=== PATIENT | male | born 1990 | race African-American/Black ===

== ENCOUNTER 2018-07-21 14:04 | Emergency (ER) | payer MEDICAID, SELFPAY ==
[2018-07-21] VITALS (23 sets, daily range): BP systolic 91–119; BP diastolic 46–85; PULSE 73–88; RESP 7–21; TEMP 36.8; O2SAT 93–100
[2018-07-21] MEDS: Normal Saline 1,000 ML 1000 ML IV (15:09)
[2018-07-21 15:14] LABS: Abs Immature Grans 0.02 k/cumm (0.0-0.09); Absolute Basophil Count 0.03 k/cumm (0.0-0.2); Absolute Lymphocyte Count 1.37 k/cumm (1.2-3.4); Absolute Monocyte Count 0.51 k/cumm (0.11-0.7); Absolute Neutrophil Count 1.64 k/cumm (1.2-6.7); Basophils % 0.8; Eosinophils % 2.7; HCT 36.2 % (36.0-46.0); HGB 12.9 g/dL (12.0-15.5); Immature Grans % 0.5; Lymphocytes % 37.3; Mean Corp. HGB Concentration 35.6 g/dL (32.0-36.0); Mean Corpuscular Hemoglobin 28.9 pg (27.0-33.0); Mean Platelet Volume 10.5 fL (8.0-11.0); Monocytes % 13.9; Neutrophils % 44.8; Platelet Count 220 x1000/uL (130-400); RBC 4.47 m/cumm (4.00-5.20); RBC Distribution Width 14.3 % (11.7-14.6); White Blood Cell Count 3.67 k/cumm (4.4-10.8)
[2018-07-21 15:36] LABS: *AMPHETAMINES SCREEN URINE Negative (Negative); *BARBITURATES SCREEN URINE Negative (Negative); *BENZODIAZEPINES SCREEN URINE Negative (Negative); Cannabinoids THC POSITIVE (Negative); Cocaine Screen,Urine Negative (Negative); METHADONE URINE SCREEN Negative (Negative); OPIATES URINE SCREEN Negative (Negative)
[2018-07-21 15:41] LABS: Tricyclic Antidepressants Negative (Negative)
[2018-07-21 15:42] LABS: ALT 48 U/L (12-78); AST 52 U/L (15-37); Albumin 3.6 g/dL (3.4-5.0); Alkaline Phosphatase 62 U/L (46-116); Anion Gap 16.3 mmol/L (3-11); BUN 15 mg/dL (7-18); Bilirubin, Total 0.1 mg/dL (0.2-1.0); CO2 22.7 mmol/L (21.0-32.0); CREATININE 0.88 mg/dL (0.55-1.02); Calcium 8.3 mg/dL (8.5-10.1); Chloride 105 mmol/L (98-107); Glucose 99 mg/dL (70-100); Potassium 3.1 mmol/L (3.5-5.1); Sodium 144 mmol/L (136-145); Total Protein 7.6 g/dL (6.4-8.2)
--- NOTE | 2018-07-21 15:50 | NUR.NOTE ---
Nursing Note: from [facility] building present in room at this time to do a breathalyzer.
--- NOTE | 2018-07-21 15:54 | NUR.NOTE ---
Nursing Note: Patient's breathalyzer by security was 0.204
[2018-07-21] MEDS: Potassium Chloride 20 MEQ TABCR 40 MEQ PO (16:00)
--- NOTE | 2018-07-21 16:00 | ED.GENADUL_ITS ---
Discharge Plan Disposition Patient Disposition: HOME Condition: Good Discharge Details Chief Complaint: Seizure Clinical Impression: Evaluation by medical service required, Acute dehydration, Movement disorder Primary Care Provider: None,None ED Provider: Brodie Gustafson Discharge Instructions Additional Instructions: Please take your home prescription of risperidone at 0.5 mg 2 tabs at bedtime. Please follow-up closely with your neurologist at the [facility]. If you notice any worsening of your symptoms, or any new symptoms such as vomiting, diarrhea, fever, chills, shortness of breath, chest pain, numbness, weakness, or fainting , please return immediately to the emergency department for reevaluation. Please follow up with your primary care provider as soon as possible for reassessment and reevaluation. As always, it was a pleasure participating in your medical care today. Discharge Data Discharge Date/Time-TO BE ENTERED AT DEPARTURE: 07/21/18 16:17 Medical Decision Making This is a 28-year-old -[place] male with a past medical history of nonepileptic movement disorder, anxiety, tics, who presents today for evaluation after his movement event. Of note he was initially seen at [facility] last night, noted to be medically stable, and discharged to the drug tank for sobering up. Eventually the patient was then brought to longterm where he had his nonepileptic movement disorder event. It was witnessed by EMS, the patient remained conscious during the entire event. He had no complaints or other abnormalities during that episode. He was then brought to the ER for further evaluation. In the emergency department patient appeared clinically sober, of sound mind, with no concerning physical exam findings. He denies any auditory or visual hallucinations. He denies any homicidal or suicidal ideations. He shows no evidence of tongue biting, or bowel or bladder incontinence. Physical exam demonstrates a normal neurologic exam with no evidence of encephalitis, meningitis or other significant abnormality. He does appear mildly dehydrated, and he was given a liter of normal saline. After this he was feeling much better. At this time I feel that he is medically clear for discharge. I feel that his movement episode that was [facility] by EMS [facility] the [facility] is part of his chronic nonepileptic movement disorders and did not consistent with a seizure or status epilepticus. Laboratory work-up shows no significant abnormalities, vital signs are notably unremarkable. Calcium was slightly low at 3.1, this is corrected with oral potassium. Calcium was minimally low at 8.3, and I recommended to the patient outpatient calcium supplementation multivitamin. Urine drug screen was positive only for THC. Discussed with the patient the importance of closely following up with his neurologist at the [facility], as well as regularly taking his risperidone as prescribed. He understands this. He also does admit to a history of noncompliance but states now that he sees the importance of taking his medications. Patient will be discharged back to the custody of the long enforcement officers who brought him in. Of note the patient is blowing 200 on his breathalyzer, and although he appears clinically sober to myself and is otherwise medically cleared, state requires that he remains in law enforcement custody until he is blowing 0. Patient will be medically released back into the care of the officers. I have extensively reviewed the treatment plan and discharge instructions with the patient. I have addressed all patient concerns at this time. The patient was made aware of what symptoms to monitor for that would warrant a return to the emergency department. Discussed the plan with the patient, they demonstrate verbal understanding and agreement with our assessment and plan at this time. EKG 14: 08 Rate 89, intervals normal, sinus rhythm, no significant ST elevations or depressions, no T wave inversions, no Q waves HPI General Date/Time Provider Initiated Documentation: 07/21/18 14:30 . HPI Narrative: This is a 28-year-old -[place] male past medical history of Tourette's syndrome, emphysema secondary to chronic tobacco abuse, nonepileptic movement disorder, currently on Risperdal. Last night he was initially found wandering around on the streets, being confrontational with various people. He was brought to [facility] emergency department where he was found to be notably i ntoxicated, after being medically cleared he was sent to police custody for drunk tank admission. He stayed there throughout the remainder of the night. This morning he was noted to be [facility] the [facility] had an episode of his chronic nonepileptic movement disorders. During the episode EMS witnessed the event, the patient had complete control and consciousness during the event and had no bowel or bladder incontinence, tongue biting or other complaints. He was brought to the ER for further evaluation. Currently the patient makes no complaints, he does recall drinking alcohol last night. He does recall this nonepileptic movement disorder event that occurred today and states that it is like the events he is on a regular basis he closely follows up with the [facility]. He denies any new drugs, IV or illicit drug use, chest pain, shortness of breath vomiting, diarrhea, numbness, tingling, weakness. He denies any other complaints or modifying factors at this time. Patient denies any homicidal or suicidal ideations. He denies any auditory or visual hallucinations. He has no other complaints at this time. General Stated Compl aint: Seizure LAINA: 2 Review of Systems Review of Systems All systems reviewed & are unremarkable except as noted in HPI and below PFSH Social History Smoking/Tobacco Use Status: Current every day Alcohol Intake: current Substance use type: does not use Do you feel safe at home: Yes Do you feel safe in your relationship?: Yes Exam Narrative Exam Narrative: 1.Const: Well-nourished, Well-developed, appearing stated age 2.Eyes: PERRL, no conjunctival injection, and symmetrical lids. 3.ENT: Atraumatic external nose and ears. Moist MM. Neck: Symmetric, trachea midline, No thyromegaly. Patient demonstrates good movement of cervical neck. There is no nuchal rigidity, no nuchal tenderness. Patient is able to flex the neck without any difficulty or significant pain. Negative Kernig's and Brudzinski sign. 4.CVS: +S1/S2, No murmurs or gallops. Peripheral pulses 2+ and equal in all extremities. Brisk capillary refill in all extremities. 5.RESP: Unlabored respiratory effort. Clear to auscultation bilaterally. No wheezes rales or rhonchi 6.GI: Soft, Nontender/Nondistended, No hepatosplenomegaly. No guarding or rebound. 7.MSK: Normocephalic/Atraumatic, Extremities w/o deformity or ttp No cyanosis or clubbing, Normal movement of all extremities 8.Skin: Warm, Dry. No rashes or lesions. 9.Neuro: automation mechanic II-XII grossly intact. Sensation grossly intact, no focal n eurologic deficits. All 6 cardinal planes of vision are fully intact. No evidence of rotatory or vertical nystagmus. The patient demonstrated a normal [id number], good dexterity. There was no evidence of dysdiadochokinesia. Patient was able to ambulate without difficulty. There was no wide-based gait. Romberg, and [id number] are both normal on testing. Sensation was intact bilaterally as well as muscle strength bilaterally for all extremities. Patient was able to verbalize butter cup with no slurring, or miss pronunciation. 10.Psych: (AAO) x3. Appropriate mood and affect Course Vital Signs Temperature 36.8 C 07/21/18 14:18 Pulse 87 07/21/18 14:18 Respiratory Rate 12 07/21/18 14:18 Blood Pressure 113/72 07/21/18 14:18 Pulse Oximetry 96 07/21/18 14:18 Temperature 36.8 C 07/21/18 14:18 Temperature Source Temporal Artery Scan 07/21/18 14:18 Pulse 87 07/21/18 14:18 Respiratory Rate 12 07/21/18 14:18 Respiratory Effort Non-Labored 07/21/18 14:23 Respiratory Depth Normal 07/21/18 14:23 Respiratory Pattern Normal 07/21/18 14:23 Blood Pressure 113/72 07/21/18 14:18 Pulse Oximetry 96 07/21/18 14:18 Oxygen Delivery Method Room Air 07/21/18 14:18 Oxygen Flow Rate 0 07/21/18 14:18 Lab/Test Results Lab/Test Results: Laboratory Tests Range/Units 07/21/18 07/21/18 07/21/18 14:08 14:08 14:08 WBC (4.4-10.8) k/cumm 3.67 L RBC (4.00-5.20) m/cumm 4.47 Hgb (12.0-15.5) g/dL 12.9 Hct (36.0-46.0) % 36.2 MCV (80-95) fL 81.0 MCH (27.0-33.0) pg 28.9 MCHC (32.0-36.0) g/dL 35.6 RDW (11.7-14.6) % 14.3 Plt Count (130-400) x1000/uL 220 MPV (8.0-11.0) fL 10.5 Immature Gran % 0.5 Neutrophils % 44.8 Lymphocytes % 37.3 Monocytes % 13.9 Eosinophils % 2.7 Basophils % 0.8 Absolute Neutrophils (1.2-6.7) k/cumm 1.64 Absolute Lymphocytes (1.2-3.4) k/cumm 1.37 Absolute Monocytes (0.11-0.7) k/cumm 0.51 Absolute Eosinophils (0.0-0.7) k/cumm 0.10 Absolute Basophils (0.0-0.2) k/cumm 0.03 Sodium (136-145) mmol/L 144 Potassium (3.5-5.1) mmol/L 3.1 L Chloride (98-107) mmol/L 105 Carbon Dioxide (21.0-32.0) mmol/L 22.7 Anion Gap (3-11) mmol/L 16.3 H BUN (7-18) mg/dL 15 Creatinine (0.55-1.02) mg/dL 0.88 Estimated GFR/1.73 m2 (mL/min/1.73m2) >= 60.00 Glucose (70-100) mg/dL 99 Calcium (8.5-10.1) mg/dL 8.3 L Total Bilirubin (0.2-1.0) mg/dL 0.1 L AST (15-37) U/L 52 H ALT (12-78) U/L 48 Alkaline Phosphatase (46-116) U/L 62 Total Protein (6.4-8.2) g/dL 7.6 Albumin (3.4-5.0) g/dL 3.6 Urine Opiates Screen (Negative) Negative Urine Methadone Screen (Negative) Negative Ur Barbiturates Screen (Negative) Negative Ur Tricyclics Screen (Negative) Negative Ur Amphetamines Screen (Negative) Negative U Benzodiazepines Scrn (Negative) Negative Urine Cocaine Screen (Negative) Negative Ur THC Screen (Negative) Positive
== END 2018-07-21 16:17 | disposition home or self-care (01) ==
PROVIDERS: Emergency Provider Student in an Organized Health Care Education/Training Program
DX: E86.0 Dehydration (principal); G25.9 Extrapyramidal and movement disorder, unspecified
CPT/HCPCS: 36415; 80053; 80307; 96360; 99283; 85025